=== PATIENT | female | born 1990 | race Caucasian/White ===

== ENCOUNTER 2022-09-28 19:57 | Emergency (ER) | payer OTHER ==
[~2022-09-28] VITALS: Ht 172.7 cm; Wt 94.3 kg
[2022-09-28] MEDS ORDERED: WELLTAB40 PO (20:05)
[2022-09-28] MEDS ORDERED: SYNT137T7 PO (20:05)
[2022-09-28 22:52] LABS: BASO % 0.3 % (0.0-1.0); EOS % 0.6 % (0.0-3.0); HEMATOCRIT 41.8 % (36.0-47.0); HEMOGLOBIN 14.1 g/dl (12.0-15.5); LYMPH # 1.9 10^3/uL (1.5-5.0); LYMPH % 26.9 % (24.0-44.0); MEAN CORPUSCULAR HEMOGLOBIN 30.5 pg (27.0-33.0); MEAN CORPUSCULAR HGB CONC 33.7 g/dl (32.0-36.5); MEAN CORPUSCULAR VOLUME 90.5 fl (80.0-96.0); MONO # 0.6 10^3/uL (0.0-0.8); MONO % 8.3 % (2.0-8.0); NEUTROPHILS # 4.5 10^3/uL (1.5-8.5); NEUTROPHILS % 63.5 % (36.0-66.0); PLATELET COUNT, AUTOMATED 273 10^3/uL (150-450); RED BLOOD COUNT 4.62 10^6/uL (4.00-5.40); WHITE BLOOD COUNT 7.1 10^3/uL (4.0-10.0)
[2022-09-28] MEDS ORDERED: ONDANSETRON 4MG 2ML VIAL IV ONE (22:55)
[2022-09-28] MEDS ORDERED: NS 1,000 ML IV ONE (22:55)
[2022-09-28 23:17] LABS: LIPASE 35 U/L (12-53)
[2022-09-28 23:19] LABS: ALBUMIN 4.1 G/DL (3.2-5.2); ALKALINE PHOSPHATASE 74 U/L (46-116); ALT/SGPT 25 U/L (7.0-40); AST/SGOT 24 U/L (<34); BILIRUBIN,DIRECT 0.2 MG/DL (<0.4); BILIRUBIN,TOTAL 0.5 MG/DL (0.3-1.2); BLOOD UREA NITROGEN 15 MG/DL (9-23); CALCIUM LEVEL 8.9 MG/DL (8.5-10.1); CARBON DIOXIDE LEVEL 28 MMOL/L (20-31); CHLORIDE LEVEL 103 MMOL/L (98-107); CREATININE FOR GFR 0.84 MG/DL (0.55-1.30); GLOMERULAR FILTRATION RATE > 60.0 (>60); GLUCOSE, FASTING 93 MG/DL (60-100); MAGNESIUM LEVEL 1.8 MG/DL (1.8-2.4); POTASSIUM SERUM 3.9 MMOL/L (3.5-5.1); SODIUM LEVEL 139 MMOL/L (136-145); TOTAL PROTEIN 7.1 G/DL (5.7-8.2)
[2022-09-28 23:21] LABS: FREE T4 1.36 NG/DL (0.89-1.76); THYROID STIMULATING HORMONE 1.331 uIU/ML (0.55-4.78)
[2022-09-28 23:23] LABS: CPK CREATINE PHOSPHOKINASE 394 U/L (34-145)
[2022-09-28 23:24] LABS: HCG, SERUM QUALITATIVE NEGATIVE (NEGATIVE)
[2022-09-29] MEDS ORDERED: ONDA4TAB6 PO (01:04)
[2022-09-29 01:08] VITALS: BP 127/74; TEMP 97.9; O2SAT 98
== END 2022-09-29 01:11 | disposition home or self-care (01) ==
LOC: M ED 19:57
DX: E86.0 Dehydration (principal); R00.2 Palpitations; F31.9 Bipolar disorder, unspecified; E03.9 Hypothyroidism, unspecified; Z82.49 Family history of ischemic heart disease and other diseases of the circulatory system; Z88.6 Allergy status to analgesic agent; Z88.5 Allergy status to narcotic agent
CPT/HCPCS: 80053; 82248; 82550; 82553; 83690; 83735; 84439; 84443; 84484; 84703; 85025; 93005; 96361; 96374; 99284; J2405